=== PATIENT | female | born 1980 | race Caucasian/White ===

== ENCOUNTER → 2020-07-29 | Outpatient (CLI) | payer BC ==
[~2020-07-29] MED LIST: FEOSOL325 MG PO; GLUCOPHAGE500 MG PO; PRENATAL VITAM1 EAC8 PO
== END ==
LOC: KOH-I 13:18
DX: M25.552 Pain in left hip (principal)
CPT/HCPCS: 73502

== ENCOUNTER 2021-04-30 14:56 | Emergency (ER) | payer BC ==
[2021-04-30 16:17] LABS: HEMOGLOBIN 13.5 gm/dl (12.3-15.3); RED BLOOD COUNT 4.77 M/UL (4.00-5.10); WHITE BLOOD COUNT 13.9 K/UL (4.5-11.0)
[2021-04-30] MEDS ORDERED: HYDROCODON-ACE1 EAC4 PO (18:54)
[2021-04-30] MEDS ORDERED: BACTROBAN OINT22 GM EXT (18:54)
[2021-04-30] MEDS ORDERED: CEPHALEXIN500 MG PO (18:54)
== END 2021-04-30 21:45 | disposition home or self-care (01) ==
LOC: ER1 14:56
PROVIDERS: Emergency Medicine
DX: S62.624B Displaced fracture of middle phalanx of right ring finger, initial encounter for open fracture (principal); S50.11XA Contusion of right forearm, initial encounter; S20.211A Contusion of right front wall of thorax, initial encounter; S61.216A Laceration without foreign body of right little finger without damage to nail, initial encounter; S30.1XXA Contusion of abdominal wall, initial encounter; Z23 Encounter for immunization; E11.9 Type 2 diabetes mellitus without complications; V86.99XA Unspecified occupant of other special all-terrain or other off-road motor vehicle injured in nontraffic accident, initial encounter
CPT/HCPCS: 12002; 70450; 71260; 73060; 73080; 73090; 73130; 80053; 84703; 85025; 90471; 90715; 96374; 96375; 99284; J0690; J2270; J2405; Q9967

== ENCOUNTER → 2021-08-30 | Outpatient (CLI) | payer BC ==
[~2021-08-30] MED LIST changes: +BACTROBAN OINT22 GM EXT; +CEPHALEXIN500 MG PO; +HYDROCODON-ACE1 EAC4 PO
== END ==
LOC: KOH-I 16:17
DX: M54.12 Radiculopathy, cervical region (principal); M54.6 Pain in thoracic spine; M54.50 Low back pain, unspecified; G89.29 Other chronic pain; M25.561 Pain in right knee; M25.562 Pain in left knee; M25.512 Pain in left shoulder; M47.814 Spondylosis without myelopathy or radiculopathy, thoracic region; M47.816 Spondylosis without myelopathy or radiculopathy, lumbar region
CPT/HCPCS: 72040; 72070; 72100; 73030; 73560

== ENCOUNTER → 2021-12-08 | Outpatient (CLI) | payer BC ==
[2021-12-08 17:25] LABS: HEMOGLOBIN 13.7 gm/dl (12.3-15.3); RED BLOOD COUNT 4.79 M/UL (4.00-5.10); WHITE BLOOD COUNT 11.3 K/UL (4.5-11.0)
== END ==
LOC: LAB 16:42
PROVIDERS: Nurse Practitioner Family
DX: E78.5 Hyperlipidemia, unspecified (principal); R07.89 Other chest pain; M54.12 Radiculopathy, cervical region; Z00.00 Encounter for general adult medical examination without abnormal findings; M25.561 Pain in right knee; M25.562 Pain in left knee; M25.50 Pain in unspecified joint; M89.319 Hypertrophy of bone, unspecified shoulder; E11.42 Type 2 diabetes mellitus with diabetic polyneuropathy; M54.9 Dorsalgia, unspecified; E79.0 Hyperuricemia without signs of inflammatory arthritis and tophaceous disease; E55.9 Vitamin D deficiency, unspecified; E53.8 Deficiency of other specified B group vitamins; R53.83 Other fatigue; R91.8 Other nonspecific abnormal finding of lung field
CPT/HCPCS: 71046; 73000; 80053; 80061; 82607; 84439; 84443; 84550; 85025; 85652; 86140

== ENCOUNTER → 2022-01-02 | Outpatient (CLI) | payer BC | LOC: US 10:30 | DX: R07.89 Other chest pain (principal); M89.319 Hypertrophy of bone, unspecified shoulder | CPT/HCPCS: 76604 ==